=== PATIENT | female | born 1975 | race Caucasian/White ===

== ENCOUNTER 2023-01-09 08:07 | Emergency (ER) | payer OTHER ==
[2023-01-09 09:03] LABS: BILIRUBIN,URINE NEGATIVE (NEGATIVE); COLOR,URINE YELLOW (YELLOW); GLUCOSE,URINE NEGATIVE (NEGATIVE); KETONES,URINE NEGATIVE (NEGATIVE); LEUKOCYTE ESTERASE,URINE NEGATIVE (NEGATIVE); NITRITE,URINE NEGATIVE (NEGATIVE); OCCULT BLOOD,URINE MODERATE (NEGATIVE); PH,URINE 5.5 (5.0-8.0); PROTEIN,URINE NEGATIVE (NEGATIVE); UROBILINOGEN,URINE 0.2 EU/dL (0.2-1.0)
[2023-01-09 09:04] LABS: BASOPHILS ABSOLUTE AUTO 0.06 K/uL (0.00-0.10); BASOPHILS PERCENT AUTO 0.9 % (0.1-1.3); EOSINOPHILS ABSOLUTE AUTO 0.09 K/uL (0.00-0.40); EOSINOPHILS PERCENT AUTO 1.4 % (0.0-5.4); HEMATOCRIT 43.6 % (34.3-46.0); HEMOGLOBIN 14.9 g/dL (11.2-15.5); IMMATURE GRAN ABSOLUTE AUTO 0.04 K/uL (0.00-0.23); IMMATURE GRAN PERCENT AUTO 0.6 % (0.0-0.7); LYMPHOCYTES PERCENT AUTO 24.2 % (11.4-47.7); MEAN CORPUSCULAR HEMOGLOBIN 31.8 pg (31.6-35.5); MEAN CORPUSCULAR HGB CONC 34.2 g/dL (31.6-35.5); MONOCYTES ABSOLUTE AUTO 0.44 K/uL (0.20-0.90); MONOCYTES PERCENT AUTO 6.7 % (3.3-12.6); NEUTROPHILS ABSOLUTE AUTO 4.37 K/uL (1.0-7.6); NEUTROPHILS PERCENT AUTO 66.2 % (40.0-78.1); PLATELET COUNT,PLT 274 K/uL (130-375); RED BLOOD CELL COUNT 4.69 M/uL (3.77-5.24); WHITE BLOOD CELL COUNT,WBC 6.6 K/uL (3.2-11.0)
[2023-01-09 09:12] LABS: AMORPHOUS SEDIMENT,URINE FEW; APPEARANCE,URINE SLIGHTLY CLOUDY (CLEAR); BACTERIA,URINE MANY; EPITHELIAL CELLS,URINE MANY; MUCUS,URINE NOT SEEN; WBC,URINE 0-5 (0-5)
[2023-01-09 09:25] LABS: A/G RATIO 1.1 (1.2-2.2); ALANINE AMINOTRANSFERASE,ALT 35 U/L (12-78); ALBUMIN 3.6 g/dL (3.4-5.0); ALKALINE PHOSPHATASE 82 U/L (46-116); ASPARTATE AMNIOTRANSFERASE,AST 29 U/L (15-37); BILIRUBIN TOTAL 0.4 mg/dL (0.2-1.0); BLOOD UREA NITROGEN,BUN 10 mg/dL (7-18); CALCIUM 8.9 mg/dL (8.5-10.1); CARBON DIOXIDE,CO2 23 mmol/L (21-32); CHLORIDE,CL 104 mmol/L (100-108); CREATININE 0.9 mg/dL (0.6-1.0); EST CRCL DRUG DOSING (CG) 71.03 mL/min; ESTIMATED GFR 80 mL/min (>60); GLUCOSE RANDOM 137 mg/dL (74-106); POTASSIUM,K 4.9 mmol/L (3.6-5.2); PROTEIN TOTAL,TP 6.9 g/dL (6.4-8.2); SODIUM,NA 137 mmol/L (140-148)
[2023-01-09 09:32] LABS: ANION GAP 14.9 mmol/L (5.0-14.0); C-REACTIVE PROTEIN < 0.05 mg/dL (0.0-0.3)
[2023-01-09] MEDS ORDERED: Ketorolac 30 MG/ML SDV IM ONE (09:43)
== END 2023-01-09 12:53 | disposition home or self-care (01) ==
LOC: JP.ED 08:07
DX: K80.70 Calculus of gallbladder and bile duct without cholecystitis without obstruction (principal); Z88.5 Allergy status to narcotic agent; Z86.16 Personal history of COVID-19
CPT/HCPCS: 36415; 76705; 76770; 80053; 81001; 83605; 83690; 85025; 86140; 96372; 99284; J1885

== ENCOUNTER 2023-01-11 13:04 | Emergency (ER) | payer OTHER ==
[2023-01-11] MEDS ORDERED: Sodium Chloride 0.9% 1,000 ML IV ONE (13:28)
[2023-01-11] MEDS ORDERED: Naloxone 0.4 MG/ML SDV IVPUSH PRN ×2 (13:28→15:12)
[2023-01-11] MEDS ORDERED: HYDROmorphone 0.5 MG/0.5 ML Syringe IVPUSH ONE ×2 (13:28→15:12)
[2023-01-11 13:41] LABS: BASOPHILS ABSOLUTE AUTO 0.06 K/uL (0.00-0.10); BASOPHILS PERCENT AUTO 0.7 % (0.1-1.3); EOSINOPHILS ABSOLUTE AUTO 0.12 K/uL (0.00-0.40); EOSINOPHILS PERCENT AUTO 1.5 % (0.0-5.4); HEMATOCRIT 46.7 % (34.3-46.0); HEMOGLOBIN 16.4 g/dL (11.2-15.5); IMMATURE GRAN ABSOLUTE AUTO 0.04 K/uL (0.00-0.23); IMMATURE GRAN PERCENT AUTO 0.5 % (0.0-0.7); LYMPHOCYTES ABSOLUTE AUTO 2.41 K/uL (0.8-3.3); LYMPHOCYTES PERCENT AUTO 29.2 % (11.4-47.7); MEAN CORPUSCULAR HEMOGLOBIN 32.3 pg (31.6-35.5); MEAN CORPUSCULAR HGB CONC 35.1 g/dL (31.6-35.5); MEAN CORPUSCULAR VOLUME 91.9 fL (81.4-99.0); MONOCYTES ABSOLUTE AUTO 0.43 K/uL (0.20-0.90); MONOCYTES PERCENT AUTO 5.2 % (3.3-12.6); NEUTROPHILS ABSOLUTE AUTO 5.19 K/uL (1.0-7.6); NEUTROPHILS PERCENT AUTO 62.9 % (40.0-78.1); PLATELET COUNT,PLT 292 K/uL (130-375); RED BLOOD CELL COUNT 5.08 M/uL (3.77-5.24); WHITE BLOOD CELL COUNT,WBC 8.3 K/uL (3.2-11.0)
[2023-01-11] MEDS ORDERED: Ondansetron 4 MG/2 ML SDV IVPUSH ONE (13:53)
[2023-01-11 14:04] LABS: A/G RATIO 1.2 (1.2-2.2); ALANINE AMINOTRANSFERASE,ALT 33 U/L (12-78); ALBUMIN 4.1 g/dL (3.4-5.0); ALKALINE PHOSPHATASE 74 U/L (46-116); ASPARTATE AMNIOTRANSFERASE,AST 13 U/L (15-37); BILIRUBIN TOTAL 0.8 mg/dL (0.2-1.0); BLOOD UREA NITROGEN,BUN 9 mg/dL (7-18); CALCIUM 9.7 mg/dL (8.5-10.1); CARBON DIOXIDE,CO2 19 mmol/L (21-32); CHLORIDE,CL 101 mmol/L (100-108); CREATININE 1.1 mg/dL (0.6-1.0); EST CRCL DRUG DOSING (CG) 58.12 mL/min; ESTIMATED GFR 63 mL/min (>60); GLUCOSE RANDOM 111 mg/dL (74-106); POTASSIUM,K 4.3 mmol/L (3.6-5.2); PROTEIN TOTAL,TP 7.6 g/dL (6.4-8.2); SODIUM,NA 135 mmol/L (140-148)
[2023-01-11 14:05] LABS: ANION GAP 19.3 mmol/L (5.0-14.0); C-REACTIVE PROTEIN < 0.05 mg/dL (0.0-0.3)
== END 2023-01-11 18:15 | disposition home or self-care (01) ==
LOC: JP.ED 13:04
DX: K80.50 Calculus of bile duct without cholangitis or cholecystitis without obstruction (principal); Z86.16 Personal history of COVID-19; Z88.5 Allergy status to narcotic agent
CPT/HCPCS: 36415; 74176; 76705; 80053; 84484; 85025; 86140; 93005; 96361; 96374; 96375; 96376; 99284; J1170; J2405; J7030

== ENCOUNTER 2023-01-12 13:35 | Inpatient (IN) | payer OTHER ==
[2023-01-12] MEDS ORDERED: Acetaminophen 325 MG Tab PO PRN (14:03)
[2023-01-12] MEDS ORDERED: Acetaminophen 650 MG Supp RECTAL PRN (14:04)
[2023-01-12] MEDS: Dextrose 5%-Lactated Ringers 1,000 ML IV SCH ×2 (14:20→22:13)
[2023-01-12] MEDS: HYDROmorphone/Normal Saline 6 MG/30 ML PCA Vial IV PRN (14:21)
[2023-01-12] MEDS: Pantoprazole 40 MG Vial IV SCH (14:28)
[2023-01-12] MEDS ORDERED: Naloxone 0.4 MG/ML SDV IV PRN (15:00)
[2023-01-12] MEDS: Ondansetron 4 MG/2 ML SDV IVPUSH PRN (21:08)
[2023-01-13 04:37] LABS: HEMATOCRIT 39.6 % (34.3-46.0); HEMOGLOBIN 13.4 g/dL (11.2-15.5); MEAN CORPUSCULAR HEMOGLOBIN 31.7 pg (31.6-35.5); MEAN CORPUSCULAR HGB CONC 33.8 g/dL (31.6-35.5); MEAN CORPUSCULAR VOLUME 93.6 fL (81.4-99.0); RED BLOOD CELL COUNT 4.23 M/uL (3.77-5.24)
[2023-01-13 04:58] LABS: A/G RATIO 1.2 (1.2-2.2); ALANINE AMINOTRANSFERASE,ALT 27 U/L (12-78); ALBUMIN 3.2 g/dL (3.4-5.0); ALKALINE PHOSPHATASE 53 U/L (46-116); ANION GAP 11.2 mmol/L (5.0-14.0); ASPARTATE AMNIOTRANSFERASE,AST 12 U/L (15-37); BILIRUBIN TOTAL 0.6 mg/dL (0.2-1.0); BLOOD UREA NITROGEN,BUN 6 mg/dL (7-18); CALCIUM 8.8 mg/dL (8.5-10.1); CARBON DIOXIDE,CO2 26 mmol/L (21-32); CHLORIDE,CL 106 mmol/L (100-108); CREATININE 0.9 mg/dL (0.6-1.0); EST CRCL DRUG DOSING (CG) 71.03 mL/min; ESTIMATED GFR 80 mL/min (>60); GLUCOSE RANDOM 148 mg/dL (74-106); MAGNESIUM 1.9 mg/dL (1.8-2.4); PHOSPHORUS 3.6 mg/dL (2.5-4.9); POTASSIUM,K 4.2 mmol/L (3.6-5.2); PROTEIN TOTAL,TP 5.8 g/dL (6.4-8.2); SODIUM,NA 139 mmol/L (140-148)
[2023-01-13] MEDS: Dextrose 5%-Lactated Ringers 1,000 ML IV SCH ×3 (05:24→18:16)
[2023-01-13] MEDS ORDERED: Lidocaine 1% with EPINEPHrine 1:100,000 50 ML MDV ONE (06:57)
[2023-01-13] MEDS ORDERED: Bupivacaine 0.5% 50 ML MDV ONE (06:57)
[2023-01-13] MEDS ORDERED: Ketamine 500 MG/5 ML MDV IV SCH ×3 (08:00→12:00)
[2023-01-13] MEDS ORDERED: fentaNYL 250 MCG/5 ML SDV ONE ×2 (08:15→15:12)
[2023-01-13] MEDS ORDERED: Propofol 200 MG/20 ML SDV ONE (08:16)
[2023-01-13] MEDS ORDERED: Succinylcholine 200 MG/10 ML MDV ONE (08:16)
[2023-01-13] MEDS ORDERED: Rocuronium 50 MG/5 ML Vial ONE (08:16)
[2023-01-13] MEDS ORDERED: Glycopyrrolate 0.2 MG/ML 5 ML MDV ONE (08:16)
[2023-01-13] MEDS ORDERED: Ondansetron 4 MG/2 ML SDV ONE (08:16)
[2023-01-13] MEDS ORDERED: Neostigmine Methylsulfate 1 MG/ML 5 ML Syringe ONE (08:16)
[2023-01-13] MEDS ORDERED: Dexamethasone 4 MG/ML SDV ONE (08:16)
[2023-01-13] MEDS ORDERED: Ketamine 17 MG in Sodium Chloride 0.9% 19.83 ML IV SCH (12:00)
[2023-01-13] MEDS ORDERED: cefOXitin 2 GM in Sodium Chloride 0.9% 50 ML IV ONE (12:00)
[2023-01-13] MEDS: Pantoprazole 40 MG Vial IV SCH (16:12)
[2023-01-13] MEDS: Ondansetron 4 MG/2 ML SDV IVPUSH PRN (16:43)
[2023-01-13] MEDS: HYDROmorphone/Normal Saline 6 MG/30 ML PCA Vial IV PRN (16:52)
[2023-01-13] MEDS ORDERED: HYDROmorphone 1 MG/ML Syringe IV PRN (18:00)
[2023-01-13] MEDS ORDERED: HYDROmorphone 0.5 MG/0.5 ML Syringe IVPUSH PRN (18:00)
[2023-01-13] MEDS ORDERED: Pantoprazole 40 MG Vial IV SCH (18:00)
[2023-01-13] MEDS: oxyCODONE 5 MG Tab PO PRN ×2 (19:38→23:39)
[2023-01-13] MEDS: cefOXitin 2 GM in Sodium Chloride 0.9% 50 ML IV SCH (19:39)
[2023-01-13] MEDS: Acetaminophen 500 MG Tab PO SCH (21:23)
[2023-01-14] MEDS: cefOXitin 2 GM in Sodium Chloride 0.9% 50 ML IV SCH ×2 (02:05→07:50)
[2023-01-14] MEDS: oxyCODONE 5 MG Tab PO PRN ×2 (03:57→07:49)
[2023-01-14 04:59] LABS: BASOPHILS PERCENT AUTO 0.2 % (0.1-1.3); HEMATOCRIT 39.8 % (34.3-46.0); HEMOGLOBIN 13.8 g/dL (11.2-15.5); IMMATURE GRAN ABSOLUTE AUTO 0.03 K/uL (0.00-0.23); IMMATURE GRAN PERCENT AUTO 0.3 % (0.0-0.7); LYMPHOCYTES ABSOLUTE AUTO 0.67 K/uL (0.8-3.3); LYMPHOCYTES PERCENT AUTO 7.8 % (11.4-47.7); MEAN CORPUSCULAR HGB CONC 34.7 g/dL (31.6-35.5); MEAN CORPUSCULAR VOLUME 92.3 fL (81.4-99.0); MONOCYTES ABSOLUTE AUTO 0.38 K/uL (0.20-0.90); MONOCYTES PERCENT AUTO 4.4 % (3.3-12.6); NEUTROPHILS ABSOLUTE AUTO 7.51 K/uL (1.0-7.6); NEUTROPHILS PERCENT AUTO 87.3 % (40.0-78.1); PLATELET COUNT,PLT 213 K/uL (130-375); RED BLOOD CELL COUNT 4.31 M/uL (3.77-5.24); WHITE BLOOD CELL COUNT,WBC 8.6 K/uL (3.2-11.0)
[2023-01-14] MEDS: Dextrose 5%-Lactated Ringers 1,000 ML IV SCH (05:07)
[2023-01-14 05:20] LABS: BASOPHILS ABSOLUTE AUTO 0.02 K/uL (0.00-0.10)
[2023-01-14 05:24] LABS: BILIRUBIN TOTAL 0.5 mg/dL (0.2-1.0)
[2023-01-14] MEDS: Acetaminophen 500 MG Tab PO SCH (05:30)
[2023-01-14] MEDS: Escitalopram 10 MG Tab PO SCH ×2 (07:50→08:58)
[2023-01-14] MEDS: Ondansetron 4 MG/2 ML SDV IVPUSH PRN (09:42)
== END 2023-01-14 10:45 | disposition home or self-care (01) | DRG 418 ==
LOC: JP.MS 13:35
PROVIDERS: ADMIT Surgery; ATTEND Surgery
PROC: 0FT44ZZ Resection of Gallbladder, Percutaneous Endoscopic Approach (ICD-10-PCS; principal; 2023-01-13)
PROC: 0WQF0ZZ Repair Abdominal Wall, Open Approach (ICD-10-PCS; 2023-01-13)
DX: K80.00 Calculus of gallbladder with acute cholecystitis without obstruction (principal); K42.0 Umbilical hernia with obstruction, without gangrene; K82.8 Other specified diseases of gallbladder; F41.9 Anxiety disorder, unspecified; Z20.822 Contact with and (suspected) exposure to COVID-19; F43.10 Post-traumatic stress disorder, unspecified; Z98.890 Other specified postprocedural states; Z87.442 Personal history of urinary calculi
CPT/HCPCS: 36415; 80053; 82247; 83735; 84075; 84100; 85025; 85027; 88304; 94762; A9270-GY; C9113; J0131; J0171; J0330; J0694; J1100; J1170; J2405; J2704; J2710; J2795; J3010; J3490; J7121; U0002